=== PATIENT | female | born 1950 | race Caucasian/White ===

== ENCOUNTER 2018-11-05 17:36 | Emergency (ER) | payer MEDICARE, OTHER ==
[2018-11-05] MEDS ORDERED: HYDROmorphone 0.5 MG/0.5 ML Syringe IM ONE (17:54)
--- NOTE | 2018-11-05 18:03 | EDM.PDOC ---
<Soraya Odom - Last Filed: 11/05/18 17:56> ED HPI GENERAL MEDICAL PROBLEM - General Chief Complaint: Lower Extremity Injury/Pain Stated Complaint: FELL AND HURT RIGHT ANKLE, LEFT SORE ALSO Time Seen by Provider: 11/05/18 17:56 Source of Information: Reports: Patient History Limitations: Reports: No Limitations - History of Present Illness INITIAL COMMENTS - FREE TEXT/NARRATIVE: pt missed a step and twisted her rt ankle and has some injury to the left. Onset: Today, Sudden Duration: Hour(s): Location: Reports: Lower Extremity, Left, Lower Extremity, Right Associated Symptoms: Reports: No Other Symptoms - Related Data Allergies Allergy/AdvReac Type Severity Reaction Status Date / Time Penicillins Allergy Rash Verified 11/05/18 18:02 Review of Systems - Review of Systems Review Of Systems: See Below Constitutional: Reports: No Symptoms Eyes: Reports: No Symptoms Ears: Reports: No Symptoms Nose: Reports: No Symptoms Mouth/Throat: Reports: No Symptoms Respiratory: Reports: No Symptoms Cardiovascular: Reports: No Symptoms GI/Abdominal: Reports: No Symptoms Musculoskeletal: Reports: Other (pain and deformity in the rt ankle. she has some pain in the left ankle. ) Course - Vital Signs Last Recorded V/S: Last Vital Signs Temp 98.6 F 11/05/18 18:00 Pulse 95 11/05/18 19:28 Resp 16 11/05/18 19:28 BP 157/88 H 11/05/18 19:28 Pulse Ox 99 11/05/18 19:28 - Orders/Labs/Meds Meds: Medications Discontinued Medications Generic Name Dose Route Start Last Admin Trade Name Jovanna PRN Reason Stop Dose Admin Hydromorphone HCl 0.5 mg 11/05/18 17:54 11/05/18 18:01 Dilaudid IM 11/05/18 17:55 0.5 mg ONETIME ONE Administration Propofol 100 mg 11/05/18 18:23 11/05/18 18:30 Diprivan 20 Ml IVPUSH 11/05/18 18:24 80 mg ONETIME ONE Administration Propofol Confirm 11/05/18 18:27 11/05/18 18:54 Diprivan 20 Ml Administered 11/05/18 18:28 Not Given Dose 200 mg .ROUTE .STK-MED ONE Departure - Departure Disposition: DC/[facility]fer to Acute Hospital 02 Clinical Impression: Fracture of ankle - Discharge Information Referrals: PCP,None [Primary Care Provider] - Forms: ED Department Discharge Care Plan Goals: Patient was sent by ground to [facility] for orthopedic evaluation and care for a fracture dislocation of the right ankle, and a distal fibular fracture of the left ankle. <Boo Willoughby - Last Filed: 11/05/18 20:35> ED EXAM, GENERAL - Physical Exam Exam: See Below Exam Limited By: No Limitations General Appearance: Alert, No Apparent Distress (Patient is uncomfortable but not distressed) Head: Atraumatic Respiratory/Chest: No Respiratory Distress, Lungs Clear Cardiovascular: Regular Rate, Rhythm GI/Abdominal: Non-Tender Extremities: Other (Exam is otherwise limited to the lower extremities. She has swelling and deformity of the right ankle with an medial malleolus or abrasion and bruising. Is also significant tenderness to the lateral malleolus of the left ankle but no deformity. Distal pulses are intact, sensation is intact.) Course - Re-Assessments/Exams Free Text/Narrative Re-Assessment/Exam: 11/05/18 18:56 An x-ray of both ankles was obtained, showing a fracture dislocation of both the distal tibia and fibula of the right ankle and a linear nondisplaced fracture of the distal fibula of the left ankle. Under sedation with propofol the right fracture dislocation was reduced and splinted with Ortho-Glass. A postreduction x-ray was obtained and the films sent to [place] to be reviewed by orthopedics. 11/05/18 20:33 Patient was in very stable condition after postreduction, an additional Ortho- Glass splint was placed on the left ankle due to the distal fibula fracture. She was transferred by ambulance to [place] after acceptance by orthopedics. Departure - Departure Time of Disposition: 20:27
[2018-11-05] MEDS ORDERED: Propofol 200 MG/20 ML SDV IVPUSH ONE (18:23)
[2018-11-05] MEDS ORDERED: Propofol 200 MG/20 ML SDV ONE (18:27)
--- NOTE | 2018-11-05 18:28 | CRLCR ---
INDICATION: Fall, bilateral ankle pain TECHNIQUE: Ankle radiograph 6 views bilateral COMPARISON: None FINDINGS: Bone: There is a transverse, nondisplaced fracture in the left lateral malleolus. Transverse fracture of the right medial malleolus, right posterior tibial malleolus, and displaced fracture of the right lateral malleolus noted. Lateral subluxation of the talus is noted, consistent with instability. Joint: See above. No significant ankle effusion is seen. Soft tissue: The Kager fat pad and the Achilles` tendon is normal in appearance. No radiopaque foreign bodies are seen. IMPRESSIONS: 1. There is a transverse, nondisplaced fracture in the left lateral malleolus. 2. Transverse fracture of the right medial malleolus, right posterior tibial malleolus, and displaced fracture of the right lateral malleolus noted. Lateral subluxation of the right talus is noted, consistent with instability. Dictated by Flaco Buckner MD @ 11/05/2018 6:26:49 PM Dictated by: Flaco Buckner MD @ 11/05/2018 18:26:58 (Electronically Signed)
--- NOTE | 2018-11-05 18:57 | CRLCR ---
INDICATION: Ankle fracture status post reduction TECHNIQUE: Ankle radiograph 2 views left COMPARISON: 11/05/2018 FINDINGS: Bone: Fractures of the medial malleolus, lateral malleolus and posterior malleolus have been reduced to near anatomic alignment. The talar dome has also been reduced to anatomic alignment. Joint: The ankle mortise joint and the visualized hindfoot joints are unremarkable in appearance. No significant ankle effusion is seen. Soft tissue: An overlying cast is noted which limits evaluation of the underlying osseous structures and soft tissues. No radiopaque foreign bodies are seen. IMPRESSION: 1. Fractures of the medial malleolus, lateral malleolus and posterior malleolus have been reduced to near anatomic alignment. The talar dome has also been reduced to anatomic alignment. Dictated by Flaco Buckner MD @ 11/05/2018 6:55:59 PM Dictated by: Flaco Buckner MD @ 11/05/2018 18:56:04 (Electronically Signed)
== END 2018-11-05 19:30 ==
LOC: JP.ED 17:36
DX: S82.851A Displaced trimalleolar fracture of right lower leg, initial encounter for closed fracture (principal); Z88.0 Allergy status to penicillin; S82.65XA Nondisplaced fracture of lateral malleolus of left fibula, initial encounter for closed fracture; W10.9XXA Fall (on) (from) unspecified stairs and steps, initial encounter
CPT/HCPCS: 27818; 29515; 73600; 73610; 96372; 99152; 99284; J1170; J2704

== ENCOUNTER 2021-12-19 19:37 | Emergency (ER) | payer MEDICARE, OTHER ==
[2021-12-19 21:58] LABS: ESTIMATED GFR 92 mL/min (>60); TROPONIN I HIGH SENSITIVITY 18.7 pg/mL (<=60.3)
== END 2021-12-19 23:21 | disposition home or self-care (01) ==
LOC: JP.ED 19:37
DX: M62.838 Other muscle spasm (principal); I10 Essential (primary) hypertension; E78.00 Pure hypercholesterolemia, unspecified; E05.90 Thyrotoxicosis, unspecified without thyrotoxic crisis or storm; Z88.0 Allergy status to penicillin; Z79.82 Long term (current) use of aspirin; Z79.899 Other long term (current) drug therapy
CPT/HCPCS: 36415; 71046; 71046-26; 80053; 82550; 84484; 85025; 85379; 86140; 93005; 93010; 99282; 99284-25